=== PATIENT | male | born 1985 | race Caucasian/White ===

== ENCOUNTER 2025-02-05 09:21 | Outpatient (CLI) | payer BC | END 2025-02-05 09:22 | disposition home or self-care (01) | LOC: CSHSLEEP 09:21 | PROVIDERS: ATTEND Internal Medicine Critical Care Medicine | DX: G47.33 Obstructive sleep apnea (adult) (pediatric) (principal); R53.83 Other fatigue; R06.83 Snoring; I10 Essential (primary) hypertension | CPT/HCPCS: 95800 ==